=== PATIENT | male | born 1960 | race Caucasian/White ===

== ENCOUNTER 2021-02-01 07:21 | Day surgery (SDC) | payer MEDICAID ==
[2021-02-01] MEDS ORDERED: fentaNYL 100 MCG/2 ML SDV IV ONE ×3 (07:22→08:57)
[2021-02-01] MEDS ORDERED: Midazolam 1 MG/ML 2 ML SDV IV ONE ×6 (07:22→09:29)
--- NOTE | 2021-02-01 07:25 | EDM.PDOC ---
ED HPI GENERAL MEDICAL PROBLEM - General Chief Complaint: ENT Problem Stated Complaint: AMBULANCE Time Seen by Provider: 02/01/21 07:25 Source of Information: Reports: Patient, EMS, Old Records, RN, RN Notes Reviewed History Limitations: Reports: No Limitations - History of Present Illness INITIAL COMMENTS - FREE TEXT/NARRATIVE: Pt arrives to ER from home by ambulance with c/o of meat stuck in his throat. Pt states he took a bite of ham this morning around 6 or 7AM and it won't go down. Pt states he is having to spit his saliva and cannot get water to pass into his stomach. Pt denies Hx of esophageal stricture, but has never had an upper endoscopy. He claims he used to have food get stuck, or almost get stuck, but could swallow hard and sip water and get it to go down, but then hasn't had that problem for a few years. Onset: Today Duration: Constant Location: Reports: Other (Throat) Quality: Reports: Pressure Severity: Severe Improves with: Reports: None Worsens with: Reports: Other (Swallowing) Associated Symptoms: Reports: No Other Symptoms - Related Data Allergies Allergy/AdvReac Type Severity Reaction Status Date / Time No Known Allergies Allergy Verified 02/01/21 07:45 Home Meds: Home Meds DULoxetine [Cymbalta] 1 cap PO DAILY 10/08/13 [History] Lidocaine 5% [Lidoderm 5%] 1 patch TRDERM ASDIRECTED 10/08/13 [History] oxyCODONE HCl/Acetaminophen [Percocet 10-325 MG] 1 tab PO Q4HR PRN 10/08/13 [History] tiZANidine [Zanaflex] 1 - 2 tab PO BEDTIME 10/08/13 [History] Zolpidem Tartrate [Zolpidem Tartrate ER] 12.5 mg PO BEDTIME 02/01/16 [History] traZODone 50 mg PO BEDTIME 02/01/16 [History] Past Medical History Musculoskeletal History: Reports: Back Pain, Chronic Social & Family History - Family History Family Medical History: No Pertinent Family History - Living Situation & Occupation Living situation: Reports: with Family ED ROS ENT - Review of Systems Review Of Systems: Comprehensive ROS is negative, except as noted in HPI. ED EXAM, ENT - Physical Exam Exam: See Below Exam Limited By: No Limitations General Appearance: Alert, WD/WN, No Apparent Distress, Anxious Eye Exam: Bilateral Eye: Normal Inspection Nose: Normal Inspection, Normal Mucousa, No Blood Mouth/Throat: Normal Inspection, Normal Gums, Normal Lips, Normal Oropharynx, Normal Teeth Head: Atraumatic, Normocephalic Neck: Normal Inspection, Supple, Non-Tender, Full Range of Motion Respiratory/Chest: No Respiratory Distress, Lungs Clear, Normal Breath Sounds, No Accessory Muscle Use, Chest Non-Tender Cardiovascular: Regular Rate, Rhythm GI/Abdominal: Normal Bowel Sounds, Soft, Non-Tender. No: Guarding, Rigid, Rebound Neurological: Alert, Oriented, CN II-XII Intact, Normal Cognition, Normal Gait, No Motor/Sensory Deficits Psychiatric: Anxious Skin: Warm, Dry, Intact, Normal Color, No Rash Course - Vital Signs Last Recorded V/S: Last Vital Signs Temp 99.0 F 02/01/21 07:46 Pulse 71 02/01/21 07:46 Resp 16 02/01/21 07:46 BP 156/89 H 02/01/21 07:46 Pulse Ox 98 02/01/21 07:46 - Orders/Labs/Meds Orders: Active Orders 24 hr Category Date Time Status Peripheral IV Care [RC] . DIRECTED Care 02/01/21 07:28 Active Sodium Chloride 0.9% [Normal Saline] 1,000 ml Med 02/01/21 07:29 Active IV .BOLUS Sodium Chloride 0.9% [Saline Flush] Med 02/01/21 07:28 Active 10 ml FLUSH ASDIRECTED PRN Peripheral IV Insertion Adult [OM.PC] Routine Oth 02/01/21 07:28 Ordered Medication Orders Sodium Chloride (Normal Saline) 1,000 mls @ 999 mls/hr IV .BOLUS ONE Stop: 02/01/21 08:29 Last Admin: 02/01/21 07:41 Dose: 999 mls/hr Documented by: CHRISTIANO Sodium Chloride (Sodium Chloride 0.9% 10 Ml Syringe) 10 ml FLUSH ASDIRECTED PRN PRN Reason: Keep Vein Open Meds: Medications Generic Name Dose Route Start Last Admin Trade Name Freq PRN Reason Stop Dose Admin Sodium Chloride 1,000 mls @ 999 mls/hr 02/01/21 07:29 02/01/21 07:41 Normal Saline IV 02/01/21 08:29 999 mls/hr .BOLUS ONE Administration Sodium Chloride 10 ml 02/01/21 07:28 Sodium Chloride 0.9% 10 Ml Syringe FLUSH ASDIRECTED PRN Keep Vein Open Discontinued Medications Generic Name Dose Route Start Last Admin Trade Name Freq PRN Reason Stop Dose Admin Glucagon 1 mg 02/01/21 07:28 02/01/21 07:41 Glucagon,Human Recombinant 1 Mg Vial IVPUSH 02/01/21 07:29 1 mg ONETIME ONE Administration Glucagon 1 mg 02/01/21 07:54 02/01/21 07:59 Glucagon,Human Recombinant 1 Mg Vial IVPUSH 02/01/21 07:55 1 mg ONETIME ONE Administration Lorazepam 0.5 mg 02/01/21 07:29 02/01/21 07:41 Lorazepam 2 Mg/Ml Sdv IVPUSH 02/01/21 07:30 0.5 mg ONETIME ONE Administration Metoclopramide HCl 10 mg 02/01/21 07:28 02/01/21 07:41 Metoclopramide 10 Mg/2 Ml Sdv IVPUSH 02/01/21 07:29 10 mg ONETIME ONE Administration - Re-Assessments/Exams Free Text/Narrative Re-Assessment/Exam: 02/01/21 08:27 Pt with persisted food impaction of the lower esophagus despite Glucagon 1mg IVP x2. Dr. Ibarra agrees to take the pt to same day surgery for endoscopy. Departure - Departure Time of Disposition: 08:29 (pt to same day surgery with Dr. Ibarra) Disposition: Refer to Observation Condition: Good Clinical Impression: Esophageal obstruction due to food impaction - Discharge Information *PRESCRIPTION DRUG MONITORING PROGRAM REVIEWED*: Not Applicable *COPY OF PRESCRIPTION DRUG MONITORING REPORT IN PATIENT [place]: Not Applicable Forms: ED Department Discharge Sepsis Event Note (ED) - Focused Exam Vital Signs: Vital Signs Temp Pulse Resp BP Pulse Ox 02/01/21 07:46 99.0 F 71 16 156/89 H 98 - My Orders Last 24 Hours: My Active Orders 02/01/21 07:28 Peripheral IV Care [RC] . DIRECTED Sodium Chloride 0.9% [Saline Flush] 10 ml FLUSH ASDIRECTED PRN Peripheral IV Insertion Adult [OM.PC] Routine 02/01/21 07:29 Sodium Chloride 0.9% [Normal Saline] 1,000 ml IV .BOLUS - Assessment/Plan Last 24 Hours: My Active Orders 02/01/21 07:28 Peripheral IV Care [RC] . DIRECTED Sodium Chloride 0.9% [Saline Flush] 10 ml FLUSH ASDIRECTED PRN Peripheral IV Insertion Adult [OM.PC] Routine 02/01/21 07:29 Sodium Chloride 0.9% [Normal Saline] 1,000 ml IV .BOLUS
[2021-02-01] MEDS ORDERED: Metoclopramide 10 MG/2 ML SDV IVPUSH ONE (07:28)
[2021-02-01] MEDS ORDERED: Sodium Chloride 0.9% 10 ML Syringe FLUSH PRN (07:28)
[2021-02-01] MEDS ORDERED: Glucagon,Human Recombinant 1 MG Vial IVPUSH ONE ×2 (07:28→07:54)
[2021-02-01] MEDS ORDERED: Sodium Chloride 0.9% 1,000 ML IV ONE (07:29)
[2021-02-01] MEDS ORDERED: LORazepam 2 MG/ML SDV IVPUSH ONE (07:29)
[2021-02-01] MEDS ORDERED: Midazolam 1 MG/ML 2 ML SDV ONE ×2 (08:21→09:06)
[2021-02-01] MEDS ORDERED: fentaNYL 100 MCG/2 ML SDV ONE (08:22)
--- NOTE | 2021-02-01 09:51 | CONS ---
SERVICE DATE: 02/01/2021 HISTORY OF PRESENT ILLNESS: Seen in Gastroenterology consultation at the request of Dr. Bowers at the emergency room for esophageal meat impaction management. He has had difficulties of heartburn snf and also had progress weight loss, and according 30 pounds in the recent months. He was eating some meat pieces this morning and felt it getting caught around the throat area. Has been spitting up oral secretions since that time. No vomiting. No hematemesis. Denies any upper abdominal pain. No anginal kind of chest pain, palpitations, or exertional dyspnea. No recent documented fever. No chills. Has not had similar difficulties with swallowing solid food in the past. Denies any recent progressive alteration in bowel habits. No rectal bleeding. No melena. No progressive leg edema. He denies any recent sore throat, nasal congestion, cough, expectoration. SOCIAL HISTORY: He smokes cigarettes. Drinks alcohol. Denies using marijuana. Does not take large amounts of aspirin-related medications regularly. Takes coffee and pop drinks, no intolerance. PAST MEDICAL HISTORY: Status post joint surgical procedures, status post head trauma resultant surgery, tobacco habituation, alcohol habituation. No previous peptic ulcer disease or hepatitis. ALLERGIES: Denies any allergy to any medications. FAMILY HISTORY: Grandparent with cancer. Denies peptic ulcer disease, liver disease, IBD or colon polyp in the immediate family members. PHYSICAL EXAMINATION: Vital Signs: Stable. General: Anxious. Garrulous. Appears not to be in distress, not short of breath at rest. Lungs: No adventitious sounds heard. Heart: S1 and S2 regular. No carotid bruit. No CHF. Back: No CVA or spinal tenderness elicited. Abdomen: Soft. No areas of tenderness elicited. Extremities: No leg edema. Rectal: Deferred. IMPRESSION: 1. Esophageal meat impaction. 2. History gastroesophageal reflux disease. 3. Tobacco habituation. 4. Alcohol habituation. 5. Status post joint surgery procedures. 6. Status post head trauma and resultant surgery. PLAN: Esophagogastroduodenoscopy today. Procedure and complications including remote ones related to esophagogastroduodenoscopy or esophageal dilatations, foreign body removal, biopsies, endoscopic hemostasis therapy and conscious sedation explained in detail, alternatives discussed and informed consent obtained. [facility] /[id number]
--- NOTE | 2021-02-01 11:41 | OR ---
DATE: 02/01/2021 PROCEDURES: Esophagoscopy and esophageal meat disimpaction. INSTRUMENT USED: [id number]-[id number] Olympus video panendoscope. PREMEDICATIONS: No oral or topical anesthesia used. Fentanyl 100 mcg intravenous, Versed 3.5 mg intravenous. Nasal O2 cannula. The procedure was done under pulse oximetry, BP recording, and teletypesetter monitor. INDICATION: The patient with esophageal meat impaction. Esophagoscopy is done for disimpaction of the meat material. Biopsies, esophageal dilatations if indicated, endoscopic hemostasis therapy if needed. DESCRIPTION OF PROCEDURE: The scope was passed with ease. Large amount of solid meat material was noted in the upper esophagus preventing further advancement of the tip of the scope to visualize distal areas using foreign body forceps as well as Cardenas net. Large pieces of solid meat material without any bony structures removed, largest around 3 cm sized. No ulceration noted. No bleeding was noted at the completion of examination. IMPRESSION: Esophageal meat impaction. The patient tolerated the procedure well. [facility] /[id number]
--- NOTE | 2021-02-01 11:41 | PN ---
DATE: 02/01/2021 TIME: 9:45 a.m. Denies any specific difficulties. Stable vital signs. Plan discussed with Dr. Bowers, ER Services here. The patient being observed as to his status. If continuing difficulties of inability to swallow, the patient to be transferred elsewhere, ENT Services, for possible general anesthesia as well as rigid esophagoscopy for management. [facility] /[id number]
[2021-02-01 20:38] VITALS: BP 129/80; PULSE 65
== END 2021-02-01 13:50 | disposition other institution (70) ==
LOC: DL.SDS 07:21 → EDSTATUS 08:30
PROVIDERS: ATTEND Internal Medicine Gastroenterology
DX: T18.128A Food in esophagus causing other injury, initial encounter (principal); F17.210 Nicotine dependence, cigarettes, uncomplicated; K21.9 Gastro-esophageal reflux disease without esophagitis; F10.10 Alcohol abuse, uncomplicated; Z01.812 Encounter for preprocedural laboratory examination; Z20.822 Contact with and (suspected) exposure to COVID-19
CPT/HCPCS: 43247; 87635; J1610; J2060; J2250; J2765; J3010; J7030; U0002